=== PATIENT | female | born 1985 | race Caucasian/White ===

== ENCOUNTER 2017-10-09 12:00 | Emergency (ER) | payer OTHER ==
[~2017-10-09] VITALS: Ht 165.1 cm; Wt 56.7 kg
[~2017-10-09 12:00] MED LIST: Amoxicillin500 MG PO; Augmentin 875-1 EACH PO; Bactrim Ds Tab1 EACH PO; Bactroban22 GM TOP; CEPH500 PO; CLIN300 PO; CODACE30 PO; Citrate Of Mag300 ML PO; Cleocin HCl150 MG PO; ERYT.5TO OS; HYDACE5 PO; IBUP600 PO; IBUP800; IBUP800 PO; LORA1 PO; Lotrisone Cream45 GM TOP; METPRE4DP PO; MUPI2TC TOP; MUPI2TO TOP; NAPR500 PO; OXYACE5T; OXYACE5T PO; PENVK500 PO; PROM25 PO; Q-Tussin100 MG/5 M PO; RXCLIN PO; RXHYDACE PO; RXPENVK250 PO; RXTRAM50 PO; SULTRIDS PO; TRAM50 PO; Verotin-Gr Cap1 EACH PO; Vibramycin100 MG PO; Zofran Odt4 MG SL; Zovirax400 MG PO
[2017-10-09] MEDS ORDERED: Tobrex5 ML RIGHTEYE (13:34)
== END 2017-10-09 14:12 | disposition home or self-care (01) ==
LOC: ER 12:00
DX: H16.001 Unspecified corneal ulcer, right eye (principal); F17.210 Nicotine dependence, cigarettes, uncomplicated; Z88.8 Allergy status to other drugs, medicaments and biological substances
CPT/HCPCS: 99283

== ENCOUNTER 2018-01-06 22:00 | Emergency (ER) | payer OTHER ==
[~2018-01-06] VITALS: Ht 165.1 cm; Wt 56.7 kg
[~2018-01-06 22:00] MED LIST changes: +Tobrex5 ML RIGHTEYE
[2018-01-06] MEDS ORDERED: BUPR75 PO (22:21)
== END 2018-01-06 22:29 | disposition left against medical advice (07) ==
LOC: ER 22:00
DX: Z53.21 Procedure and treatment not carried out due to patient leaving prior to being seen by health care provider (principal)

== ENCOUNTER 2018-06-05 19:40 | Emergency (ER) | payer OTHER ==
[~2018-06-05] VITALS: Ht 165.1 cm; Wt 63.5 kg
[~2018-06-05 19:40] MED LIST changes: +BUPR75 PO
[2018-06-05] MEDS ORDERED: CEPH500 (19:50)
[2018-06-08 02:12] LABS: CHLAMYDIA TRACHOMATIS, NAA Negative (Negative); NEISSERIA GONORRHOEAE, NAA Negative (Negative)
== END 2018-06-05 20:25 | disposition home or self-care (01) ==
LOC: ER 19:40
PROVIDERS: Physician Assistant
DX: J06.9 Acute upper respiratory infection, unspecified (principal); Z20.2 Contact with and (suspected) exposure to infections with a predominantly sexual mode of transmission; F17.210 Nicotine dependence, cigarettes, uncomplicated; Z88.8 Allergy status to other drugs, medicaments and biological substances
CPT/HCPCS: 96372; 99283-25; J0696

== ENCOUNTER 2018-08-07 05:03 | Emergency (ER) | payer OTHER ==
[~2018-08-07] VITALS: Ht 165.1 cm; Wt 63.5 kg
[~2018-08-07 05:03] MED LIST changes: +CEPH500
[2018-08-07] MEDS ORDERED: HYDHCL25 PO (06:28)
== END 2018-08-07 06:41 | disposition home or self-care (01) ==
LOC: ER 05:03
DX: K12.1 Other forms of stomatitis (principal); R21 Rash and other nonspecific skin eruption; F41.9 Anxiety disorder, unspecified
CPT/HCPCS: 99282

== ENCOUNTER 2019-02-01 04:20 | Emergency (ER) | payer OTHER ==
[~2019-02-01] VITALS: Ht 165.1 cm; Wt 59.0 kg
[~2019-02-01 04:20] MED LIST changes: +HYDHCL25 PO
[2019-02-01] MEDS ORDERED: Bactrim Ds Tab1 EACH PO (04:51)
== END 2019-02-01 05:00 | disposition home or self-care (01) ==
LOC: ER 04:20
DX: L03.115 Cellulitis of right lower limb (principal); L08.9 Local infection of the skin and subcutaneous tissue, unspecified; Z88.8 Allergy status to other drugs, medicaments and biological substances; F17.210 Nicotine dependence, cigarettes, uncomplicated
CPT/HCPCS: 99283

== ENCOUNTER → 2019-05-19 | Outpatient (CLI) | payer OTHER ==
[2019-05-22 02:06] LABS: CHLAMYDIA TRACHOMATIS, NAA Negative (Negative); NEISSERIA GONORRHOEAE, NAA Negative (Negative)
== END | disposition home or self-care (01) ==
LOC: LAB EV 15:45 → LAB SHORT 15:45
PROVIDERS: Physician Assistant
DX: Z72.51 High risk heterosexual behavior (principal)
CPT/HCPCS: 87491; 87591

== ENCOUNTER 2019-08-02 19:20 | Emergency (ER) | payer OTHER | END 2019-08-02 19:25 | disposition left against medical advice (07) | LOC: ER 19:20 | DX: Z53.21 Procedure and treatment not carried out due to patient leaving prior to being seen by health care provider (principal) ==

== ENCOUNTER 2019-10-15 19:03 | Emergency (ER) | payer OTHER ==
[~2019-10-15] VITALS: Ht 170.2 cm; Wt 72.6 kg
[2019-10-15] MEDS ORDERED: ESCI10 (19:18)
[2019-10-15] MEDS ORDERED: Robaxin-750750 MG (19:18)
[2019-10-15] MEDS ORDERED: ATOM10 (19:18)
[2019-10-15] MEDS ORDERED: Atarax10 MG (19:18)
[2019-10-15] MEDS ORDERED: Bactrim Ds Tab1 EACH PO (19:36)
== END 2019-10-15 19:56 | disposition home or self-care (01) ==
LOC: ER 19:03
DX: A49.02 Methicillin resistant Staphylococcus aureus infection, unspecified site (principal)
CPT/HCPCS: 87081; 87430; 99283; A9270-GY

== ENCOUNTER → 2019-11-19 | Outpatient (CLI) | payer OTHER ==
[~2019-11-19] MED LIST changes: +ATOM10; +Atarax10 MG; +ESCI10; +Robaxin-750750 MG
[2019-11-20 11:21] LABS: Candida species (DNA Probe) Negative (NEGATIVE); G. vaginalis (DNA Probe) Positive (NEGATIVE); T. vaginalis (DNA Probe) Negative (NEGATIVE)
[2019-11-21 15:09] LABS: CHLAMYDIA TRACHOMATIS, NAA Negative (Negative); HPV 16 Negative (Negative); HPV 18 Negative (Negative); HPV OTHER HR TYPES Negative (Negative); NEISSERIA GONORRHOEAE, NAA Negative (Negative)
== END ==
LOC: LAB 10:35 → LAB SHORT 10:35
PROVIDERS: Obstetrics & Gynecology
DX: Z01.419 Encounter for gynecological examination (general) (routine) without abnormal findings (principal); Z11.3 Encounter for screening for infections with a predominantly sexual mode of transmission; N76.0 Acute vaginitis
CPT/HCPCS: 87480; 87510; 87660

== ENCOUNTER 2019-11-28 18:30 | Emergency (ER) | payer OTHER ==
[~2019-11-28] VITALS: Ht 170.2 cm; Wt 72.6 kg
[2019-11-28] MEDS ORDERED: BUPR75 (19:12)
[2019-11-28] MEDS ORDERED: Vibramycin100 MG PO (19:34)
== END 2019-11-28 19:49 | disposition home or self-care (01) ==
LOC: ER 18:30
DX: L08.9 Local infection of the skin and subcutaneous tissue, unspecified (principal); T23.211D Burn of second degree of right thumb (nail), subsequent encounter; F17.290 Nicotine dependence, other tobacco product, uncomplicated; Z88.8 Allergy status to other drugs, medicaments and biological substances
CPT/HCPCS: 99283

== ENCOUNTER 2021-10-26 10:33 | Emergency (ER) | payer OTHER ==
[~2021-10-26] VITALS: Ht 165.1 cm; Wt 56.7 kg
[~2021-10-26 10:33] MED LIST changes: +ACYC200; +AMOCLA875 PO; +AMPDEX5; +BUPR75
[2021-10-26] MEDS ORDERED: LEVOFLOXACIN5 ML RIGHTEYE (11:07)
== END 2021-10-26 11:08 | disposition home or self-care (01) ==
LOC: ER 10:33
DX: H10.89 Other conjunctivitis (principal); F41.9 Anxiety disorder, unspecified; K21.9 Gastro-esophageal reflux disease without esophagitis; F17.290 Nicotine dependence, other tobacco product, uncomplicated; F12.90 Cannabis use, unspecified, uncomplicated; F15.90 Other stimulant use, unspecified, uncomplicated; Z79.899 Other long term (current) drug therapy; Z88.8 Allergy status to other drugs, medicaments and biological substances
CPT/HCPCS: 99282

== ENCOUNTER 2021-10-29 16:05 | Emergency (ER) | payer OTHER ==
[~2021-10-29] VITALS: Ht 165.1 cm; Wt 56.7 kg
[~2021-10-29 16:05] MED LIST changes: +LEVOFLOXACIN5 ML RIGHTEYE
[2021-10-29] MEDS ORDERED: Tobrex5 ML RIGHTEYE (16:42)
[2021-10-29] MEDS ORDERED: Monodox100 MG PO (16:42)
== END 2021-10-29 16:50 | disposition home or self-care (01) ==
LOC: ER 16:05
DX: H57.89 Other specified disorders of eye and adnexa (principal); L98.9 Disorder of the skin and subcutaneous tissue, unspecified; A49.02 Methicillin resistant Staphylococcus aureus infection, unspecified site; F17.290 Nicotine dependence, other tobacco product, uncomplicated; F15.90 Other stimulant use, unspecified, uncomplicated; F12.90 Cannabis use, unspecified, uncomplicated; F41.9 Anxiety disorder, unspecified; K21.9 Gastro-esophageal reflux disease without esophagitis; Z79.899 Other long term (current) drug therapy; Z88.8 Allergy status to other drugs, medicaments and biological substances
CPT/HCPCS: A9270

== ENCOUNTER 2021-11-01 11:03 | Emergency (ER) | payer OTHER ==
[~2021-11-01] VITALS: Ht 165.1 cm; Wt 56.7 kg
[~2021-11-01 11:03] MED LIST changes: +Monodox100 MG PO
[2021-11-01] MEDS ORDERED: CLIN150 PO (11:48)
== END 2021-11-01 11:49 | disposition home or self-care (01) ==
LOC: ER 11:03
DX: L03.811 Cellulitis of head [any part, except face] (principal); Z88.1 Allergy status to other antibiotic agents; Z79.899 Other long term (current) drug therapy; F17.290 Nicotine dependence, other tobacco product, uncomplicated
CPT/HCPCS: 99282

== ENCOUNTER 2022-02-12 15:28 | Emergency (ER) | payer OTHER ==
[~2022-02-12] VITALS: Ht 165.1 cm; Wt 56.7 kg
[~2022-02-12 15:28] MED LIST changes: +CLIN150 PO
== END 2022-02-12 16:33 | disposition left against medical advice (07) ==
LOC: ER 15:28
DX: H57.12 Ocular pain, left eye (principal); H57.89 Other specified disorders of eye and adnexa; Z53.21 Procedure and treatment not carried out due to patient leaving prior to being seen by health care provider
CPT/HCPCS: 99281; A9270

== ENCOUNTER 2022-05-08 16:44 | Emergency (ER) | payer OTHER ==
[~2022-05-08] VITALS: Ht 165.1 cm; Wt 59.0 kg
[2022-05-08] MEDS ORDERED: CEPH500 PO (21:16)
== END 2022-05-08 21:33 | disposition home or self-care (01) ==
LOC: ER 16:44
DX: L03.116 Cellulitis of left lower limb (principal); F17.290 Nicotine dependence, other tobacco product, uncomplicated; Z88.1 Allergy status to other antibiotic agents; Z79.899 Other long term (current) drug therapy
CPT/HCPCS: 93971

== ENCOUNTER 2022-09-03 13:45 | Emergency (ER) | payer OTHER ==
[~2022-09-03] VITALS: Ht 165.1 cm; Wt 61.2 kg
[2022-09-03] MEDS ORDERED: CEPH500 PO (14:48)
== END 2022-09-03 14:52 | disposition home or self-care (01) ==
LOC: ER 13:45
DX: S60.414A Abrasion of right ring finger, initial encounter (principal); W45.8XXA Other foreign body or object entering through skin, initial encounter; F17.290 Nicotine dependence, other tobacco product, uncomplicated; Z88.8 Allergy status to other drugs, medicaments and biological substances
CPT/HCPCS: 99283

== ENCOUNTER 2022-12-29 20:28 | Emergency (ER) | payer OTHER ==
[~2022-12-29] VITALS: Ht 165.1 cm; Wt 59.0 kg
[2022-12-29 22:48] VITALS: BP 136/78
[2022-12-29] MEDS ORDERED: SULTRIDS PO (23:02)
== END 2022-12-29 23:38 | disposition home or self-care (01) ==
LOC: ER 20:28
DX: J34.0 Abscess, furuncle and carbuncle of nose (principal); Z88.8 Allergy status to other drugs, medicaments and biological substances; Z79.2 Long term (current) use of antibiotics; Z79.899 Other long term (current) drug therapy; K21.9 Gastro-esophageal reflux disease without esophagitis; Z86.14 Personal history of Methicillin resistant Staphylococcus aureus infection; F17.290 Nicotine dependence, other tobacco product, uncomplicated
CPT/HCPCS: 99283; A9270

== ENCOUNTER → 2023-12-14 | Outpatient (CLI) | payer OTHER ==
[~2023-12-14] MED LIST changes: +MUPIROCIN15 GM TOP
[2023-12-14 16:52] LABS: Source, Urine Clean Catch
[2023-12-14 17:32] LABS: Bacteria Rare /hpf; Red Blood Cells, Urine Not Seen /hpf (0-2); Squamous Epithelial Cells Rare /hpf (Few); White Blood Cells, Urine 0-2 /hpf (0-5)
[2023-12-14 17:36] LABS: U Amphetamine Screen Not Detected; U Barbituate Screen Not Detected; U Benzodiazapine Screen Not Detected; U Cannabinoids Screen DETECTED; U Cocaine Screen Not Detected; U Methadone Screen Not Detected; U Methamphetamine Screen Not Detected; U Opiates Screen Not Detected; U Phencyclidine Screen Not Detected
[2023-12-14 17:37] LABS: U Buprenorphine Screen Not Detected; U Oxycodone Screen Not Detected
[2023-12-17 18:45] LABS: 11-NOR-9-CARBOXY-THC,URN,QUANT 352 ng/mL
== END | disposition home or self-care (01) ==
LOC: LAB 16:50 → LAB SHORT 16:50
PROVIDERS: Obstetrics & Gynecology
DX: Z34.81 Encounter for supervision of other normal pregnancy, first trimester (principal)
CPT/HCPCS: 81015; 87086; G0480

== ENCOUNTER → 2024-02-05 | Outpatient (CLI) | payer OTHER ==
[~2024-02-05] MED LIST changes: +ASPIRIN REGIMEN81 MG PO
[2024-02-05 19:45] LABS: Bacterial Vaginosis PCR Negative (NEGATIVE); Candida Group, PCR NOT DETECTED (NOT DETECT); Candida glabrata-krusei, PCR NOT DETECTED (NOT DETECT)
== END ==
LOC: LAB 14:57 → LAB SHORT 14:57
PROVIDERS: Obstetrics & Gynecology
DX: N76.0 Acute vaginitis (principal)
CPT/HCPCS: 87481; 87661; 87801

== ENCOUNTER 2024-02-11 19:43 | Emergency (ER) | payer OTHER ==
[~2024-02-11] VITALS: Ht 165.1 cm; Wt 71.7 kg
[~2024-02-11 19:43] MED LIST changes: -ASPIRIN REGIMEN81 MG PO
[2024-02-11] MEDS ORDERED: NS 1,000 ML IV SCH (20:00)
[2024-02-11] MEDS ORDERED: Ondansetron HCl 2 MG / ML 2ML Vial IV ONE (20:00)
[2024-02-11] MEDS ORDERED: ASPIRIN REGIMEN81 MG PO (20:05)
[2024-02-11] MEDS ORDERED: Ondansetron 4 MG SoluTab MM ONE (20:15)
[2024-02-11 20:18] LABS: Source, Urine Voided
[2024-02-11 20:25] LABS: Appearance, Urine Clear (Clear); Bilirubin, Urine Neg (Neg); Blood, Urine Neg (Neg); Color, Urine Yellow (P-Yellow); Glucose Qualitative, Urine Neg (Neg); Ketones, Urine 4+ (Neg); Leukocyte Esterase, Urine Neg (Neg); Nitrite, Urine Neg (Neg); Protein, Urine 2+ (Neg); Specific Gravity, Urine 1.025 (1.003-1.022); Urobilinogen, Urine NORM (Normal)
[2024-02-11 20:29] LABS: BASOPHILS ABSOLUTE AUTO 0.03 K/mm3 (0.00-0.23); BASOPHILS PERCENT AUTO 0 % (0-2); EOSINOPHILS ABSOLUTE AUTO 0.01 K/mm3 (0.00-0.68); EOSINOPHILS PERCENT AUTO 0 % (0-6); Hemoglobin 13.9 g/dL (11.5-16.0); IMMATURE GRAN ABSOLUTE AUTO 0.07 K/mm3 (0.00-0.10); IMMATURE GRAN PERCENT AUTO 1 % (0-1); LYMPHOCYTES ABSOLUTE AUTO 1.78 K/mm3 (0.84-5.20); LYMPHOCYTES PERCENT AUTO 13 % (21-46); MONOCYTES ABSOLUTE AUTO 0.73 K/mm3 (0.16-1.47); MONOCYTES PERCENT AUTO 5 % (4-13); Mean Corpuscular HGB 30.8 pg (26.0-34.0); Mean Corpuscular HGB Conc 34.8 g/dL (31.5-36.5); Mean Corpuscular Volume 89 fL (80-100); Mean Platelet Volume 11.4 fL (9.1-12.4); NEUTROPHILS ABSOLUTE AUTO 11.17 K/mm3 (1.96-9.15); NEUTROPHILS PERCENT AUTO 81 % (41-73); Platelet Count 268 K/mm3 (150-400); RDW Coefficient Variation 13.2 % (11.7-14.2); RDW Standard Deviation 42.5 fL (35.1-46.3); Red Blood Cell Count 4.51 M/mm3 (3.80-5.20); White Blood Cell Count 13.79 K/mm3 (4.00-11.30)
[2024-02-11 20:32] LABS: Bacteria Few /hpf; Red Blood Cells, Urine 0-2 /hpf (0-2); Squamous Epithelial Cells Few /hpf (Few); White Blood Cells, Urine 0-2 /hpf (0-5)
[2024-02-11 20:39] LABS: Albumin, Blood 3.3 g/dL (3.4-5.0); Albumin/Globulin Ratio 0.7 (0.8-1.8); Bun/Creatinine Ratio 7.9 (12.0-20.0); Calcium, Blood 9.1 mg/dL (8.5-10.1); Creatinine, Blood 0.63 mg/dL (0.40-1.00); Globulin, Blood 4.5 g/dL (2.2-4.0); Total Protein, Blood 7.8 g/dL (6.4-8.2)
[2024-02-11] MEDS ORDERED: RX Prepack 2 Tabs Ondansetron ODT 4MG UD ONE (21:05)
[2024-02-11 21:30] VITALS: BP 142/63
== END 2024-02-11 21:31 | disposition home or self-care (01) ==
LOC: ER 19:43
PROVIDERS: Emergency Medicine
DX: O21.0 Mild hyperemesis gravidarum (principal); O99.333 Smoking (tobacco) complicating pregnancy, third trimester; F17.290 Nicotine dependence, other tobacco product, uncomplicated; Z3A.32 32 weeks gestation of pregnancy; Z88.8 Allergy status to other drugs, medicaments and biological substances; Z79.82 Long term (current) use of aspirin; Z79.899 Other long term (current) drug therapy
CPT/HCPCS: 36415; 80053; 81001; 83690; 85025; 96361; 96374; 99284-25; A9270; J2405; J7030

== ENCOUNTER → 2024-03-12 | Outpatient (CLI) | payer OTHER ==
[~2024-03-12] MED LIST changes: +ASPIRIN REGIMEN81 MG PO
== END | disposition home or self-care (01) ==
LOC: LAB SHORT 10:38 → LAB 10:38
DX: O09.892 Supervision of other high risk pregnancies, second trimester (principal); Z86.14 Personal history of Methicillin resistant Staphylococcus aureus infection
CPT/HCPCS: 87081; 87150

== ENCOUNTER 2024-08-14 11:27 | Day surgery (SDC) | payer OTHER ==
[~2024-08-14] VITALS: Ht 165.1 cm; Wt 82.8 kg
[~2024-08-14 11:27] MED LIST changes: +Lactated Ringer's 1,000 ML IV ONE; +OXAYDO5 M1 PO; +PRENATAL TABLE1 EAC2; +VALA500
[2024-08-14] MEDS ORDERED: ACYC200 PO (12:02)
[2024-08-14] MEDS ORDERED: propofoL 20 ML IV ONE (12:16)
[2024-08-14] MEDS ORDERED: FentaNYL Citrate 50 MCG/ML 2 ML Injection ONE ×2 (12:16→14:20)
[2024-08-14] MEDS ORDERED: Midazolam HCl 1MG / ML 2ML Vial ONE (12:17)
[2024-08-14] MEDS ORDERED: Lactated Ringer's 1,000 ML IV ONE ×2 (12:20→14:19)
--- NOTE | 2024-08-14 12:34 | NUR ---
08/14/24 Adalberto4 Yoselin Fox PT EDUCATION PROVIDED. PT ABLE TO ASK QUESTIONS. QUESTIONS ANSWERED, CONCERNS ADDRESSED. PT'S MOM AND BABY BOY AT BEDSIDE. CALL LIGHT WITHIN REACH. LAUREEN NGUYEN.
[2024-08-14] MEDS ORDERED: Rocuronium Bromide 10 MG/ML 5ML Injection IV ONE (13:13)
[2024-08-14] MEDS ORDERED: Lidocaine HCl 2% 10 ML SDA ONE (13:19)
[2024-08-14] MEDS ORDERED: Bupivacaine 0.5% W/EPI 1:200000 SDV 30ML XX ONE (13:31)
[2024-08-14] MEDS ORDERED: Sugammadex Sodium 200 MG/2ML SDV (100 MG/ML) ONE (13:45)
[2024-08-14] MEDS ORDERED: Neostigmine Methylsulfate 5MG/5ML SYR ONE (13:48)
[2024-08-14] MEDS ORDERED: Glycopyrrolate 0.2 MG/ML 5ML VIAL ONE (13:48)
--- NOTE | 2024-08-14 14:02 | NUR ---
08/14/24 1402 Angeles Oden OUT AT 1352 WITH 300ML OUTPUT
[2024-08-14] MEDS ORDERED: Ondansetron HCl 2 MG / ML 2ML Vial ONE (14:20)
[2024-08-14] MEDS ORDERED: Ibuprofen 400 MG Tab ONE (15:00)
[2024-08-14] MEDS ORDERED: OxyCODONE 5 mg/Acetamin 325 mg TABLET ONE (15:01)
--- NOTE | 2024-08-14 15:03 | NUR ---
08/14/24 [id number] Tiffany iRddle RECEIVED REPORT FROM JUS LAI. ABLE TO GET PATIENT INTO RECLINER. PT REPORTS PAIN 09/25. PT TOLERATING ORAL FLUIDS.
[2024-08-14 15:23] VITALS: BP 129/76
== END 2024-08-14 15:36 | disposition home or self-care (01) ==
LOC: ORSCSDS 11:27
PROVIDERS: Obstetrics & Gynecology
PROC: 0UT74ZZ Resection of Bilateral Fallopian Tubes, Percutaneous Endoscopic Approach (ICD-10-PCS; principal; 2024-08-14 13:00)
DX: Z30.9 Encounter for contraceptive management, unspecified (principal); Q50.5 Embryonic cyst of broad ligament; F17.290 Nicotine dependence, other tobacco product, uncomplicated; F90.9 Attention-deficit hyperactivity disorder, unspecified type; Z79.899 Other long term (current) drug therapy
CPT/HCPCS: 88302; A9270; J2003; J2250; J2405; J2704; J2710; J3010; J7120

== ENCOUNTER → 2025-02-02 | Outpatient (CLI) | payer OTHER ==
[~2025-02-02] MED LIST changes: +ACYC200 PO; -Lactated Ringer's 1,000 ML IV ONE
== END | disposition home or self-care (01) ==
LOC: LAB 18:07 → LAB SHORT 18:07
PROVIDERS: Family Medicine
DX: Z12.4 Encounter for screening for malignant neoplasm of cervix (principal)
CPT/HCPCS: 87624; G0145

== ENCOUNTER → 2025-05-13 | Outpatient (CLI) | payer OTHER ==
[2025-05-18 13:58] LABS: OVA AND PARASITE,FECAL INTERP Negative (Negative)
== END | disposition home or self-care (01) ==
LOC: LAB SHORT 14:55 → LAB 14:55
PROVIDERS: Family Medicine
DX: R19.5 Other fecal abnormalities (principal)
CPT/HCPCS: 87177; 87209